=== PATIENT | male | born 1960 | race Caucasian/White ===

== ENCOUNTER → 2024-05-03 | Outpatient (CLI) | payer MEDICARE, MEDICAID, SELFPAY ==
--- NOTE | 2024-05-03 08:54 | XR_ITS ---
EXAMINATION: Cervical spine, 5 views Technique: Cervical spine AP, AP odontoid, lateral, bilateral obliques, 5 views Exam date and time: May 03, 2024 0904 hours INDICATIONS: Neck pain radiating to the right arm, numbness in the right hand 2 months FINDINGS: Adequate alignment cervical vertebral bodies No cervical fracture Advanced degenerative disc disease C3-C4 Mild to moderate bilateral neural foraminal stenosis most prominent C5-C6 Intact odontoid IMPRESSION: Advanced degenerative disc disease C3-C4 Mild to moderate bilateral neural foraminal stenosis, most prominent C5-C6
--- NOTE | 2024-05-03 08:54 | XR_ITS ---
Examination: PA lateral chest 2 views TECHNIQUE: Upright PA lateral chest 2 views Exam date and time: May 03, 2024 0907 hours INDICATIONS: Chronic hypertension, months FINDINGS: Normal heart size Left anterior descending coronary artery calcification No pneumonia or pulmonary edema Moderate osteopenia IMPRESSION: No active disease
== END | disposition home or self-care (01) ==
LOC: CDIM 08:37
PROVIDERS: PCP Family Medicine; Referring Provider Family Medicine; Visit Provider Family Medicine
DX: M50.31 Other cervical disc degeneration, high cervical region (principal); M48.02 Spinal stenosis, cervical region
CPT/HCPCS: 71046; 72050

== ENCOUNTER → 2024-06-08 | Outpatient (CLI) | payer MEDICARE, MEDICAID, SELFPAY ==
[2024-06-08 15:50] LABS: Amphetamine/Methamp Scrn,U Negative (Negative); Barbiturate Screen,Urine Negative (Negative); Benzodiazepines Screen,Urine Negative (Negative); Benzoylecgonine Screen, Ur Negative (Negative); Fentanyl Screen,Urine Negative (Negative); Opiate Screen,Urine Positive (Negative); THC Screen,Urine Positive (Negative)
== END | disposition home or self-care (01) ==
LOC: SLDO 14:08
PROVIDERS: PCP Family Medicine; Referring Provider Family Medicine; Visit Provider Family Medicine
DX: M54.2 Cervicalgia (principal); Z71.51 Drug abuse counseling and surveillance of drug abuser
CPT/HCPCS: 80307

== ENCOUNTER 2024-08-23 10:46 | Emergency (ER) | payer OTHER, SELFPAY ==
[2024-08-23] VITALS (8 sets, daily range): BP systolic 151–171; BP diastolic 94–106; PULSE 76–86; RESP 17–24; TEMP 36.6–36.8; O2SAT 95–98; BMI 36.6
--- NOTE | 2024-08-23 10:46 | EKG_ITS ---
[facility] Test Date: 2024-08-23 Pat Name: ANDREA MONTERO Department: Room: - Gender: Male Injection Molding Technician: : 1960 Requested By: Neda Hendrickson Order Number: [id number] Reading MD: Neda Hendrickson Measurements Intervals [place] Rate: 80 P: 37 [place]: 182 QRS: -80 QRSD: 180 T: 27 QT: 407 QTc: 470 Interpretive Statements SINUS RHYTHM RIGHT BUNDLE BRANCH BLOCK [120+ ms QRS DURATION, UPRIGHT V1, 40+ ms S IN I/aVL/V4/V5/V6] LEFT ANTERIOR FASCICULAR BLOCK [QRS AXIS <= -45, QR IN I, RS IN II] ANTEROSEPTAL MYOCARDIAL INFARCTION , PROBABLY RECENT [40+ ms Q WAVE IN V1-V4] ACUTE [place] Compared to ECG 05/08/2022 08:23:55 Left anterior fascicular block now present Myocardial infarct finding still present /store/S0/[id number]/ecg/[id number].pdf
--- NOTE | 2024-08-23 10:46 | XR_ITS ---
Examination: AP chest single view Technique one AP portable semiupright chest single view Exam date and time: August 23, 2024 11:41 AM Comparison May 03, 2024 INDICATIONS: Chest pain beginning this morning FINDINGS: Normal heart size Lungs are clear. Moderate osteopenia IMPRESSION: No active disease
--- NOTE | 2024-08-23 10:47 | PD.EDCHEST ---
ED Chest Pain RME/HPI General Chief Complaint: Weakness Stated Complaint: WEAKNESS Time Seen by Provider: 08/23/24 10:46 Arrival date/time: 08/23/24 10:46 Related Data Home Medications ?Medication ?Instructions ?Recorded ?Confirmed amlodipine 5 mg tablet 5 mg PO QDAY 02/22/18 05/08/22 atorvastatin 80 mg tablet 80 mg PO QDAY 02/22/18 05/08/22 baclofen 10 mg tablet 10 mg PO QDAY 02/22/18 05/08/22 omeprazole 20 mg tablet,delayed 20 mg PO QDAY 02/22/18 05/08/22 release aspirin 325 mg tablet 325 mg PO QDAY 10/25/20 05/08/22 carvedilol 25 mg tablet 25 mg PO BID 05/08/22 05/08/22 clopidogrel 75 mg tablet 75 mg PO QDAY 05/08/22 05/08/22 hydrocodone 10 mg-acetaminophen 1 tab PO Q6H PRN Pain 05/08/22 05/08/22 325 mg tablet Allergies Allergy/AdvReac Type Severity Reaction Status Date / Time No Known Allergies Allergy Verified 08/23/24 10:53 Course Orders Category Date Time Status Repairer Art Objects NOW Care 08/23/24 10:46 Active EKG (ED ONLY) *Do not use* NOW Care 08/23/24 10:46 Active EKG (ED Only) Stat Exams 08/23/24 10:46 Ordered XR chest 1V portable Stat Exams 08/23/24 10:46 Ordered B-Type Natriuretic Peptide Stat Lab 08/23/24 10:46 Ordered CBC Stat Lab 08/23/24 10:46 Ordered Comprehensive Metabolic Panel Stat Lab 08/23/24 10:46 Ordered Lipase Stat Lab 08/23/24 10:46 Ordered Magnesium Stat Lab 08/23/24 10:46 Ordered Partial Thromboplastin Time Stat Lab 08/23/24 10:46 Ordered Prothrombin Time with INR Stat Lab 08/23/24 10:46 Ordered Troponin I Stat Lab 08/23/24 10:46 Ordered Chest Pain MDM Narrative MDM Narrative:: Ludivina Omalley am scribing for and in the presence of Dr. Downey. Evaluation data Interpretation Summary: EKG#1: EKG at 1047 hours. Interpreted by me: sinus rhythm, rate xx, Q waves V1-V6 and in leads 2, 3, and AVF, right bundle branch block, mild artifact, unchanged from EKG from 05/14/2022 Discharge Plan Prescriptions/Referrals Prescriptions/Med Rec: No Action atorvastatin 80 mg Tablet 80 mg PO QDAY amlodipine 5 mg Tablet 5 mg PO QDAY baclofen 10 mg Tablet 10 mg PO QDAY omeprazole 20 mg Tablet,Delayed Release (Dr/Ec) 20 mg PO QDAY aspirin 325 mg Tablet 325 mg PO QDAY carvedilol 25 mg tablet 25 mg PO BID clopidogrel 75 mg tablet 75 mg PO QDAY hydrocodone-acetaminophen 10-325 mg tablet 1 tab PO Q6H PRN (Reason: Pain) Patient/Caregiver Discharge Instructions Print Language: Uzbek
[2024-08-23] MEDS: ASPIRIN 81 MG CHEW 162 MG PO (10:53)
--- NOTE | 2024-08-23 11:07 | PC.NURSE ---
PT SENT TO ER FROM MD OFFICE W/ POSSIBLE NH. PT DENIES ANY CHEST PAIN/PRESSURE OR FEELING BAD . YESTERDAY PT SAID HE HAD SOME NAUSEA AND VOMITING AT HOME BUT FEELS FINE TODAY. VS STABLE. WILL CONTINUE TO MONITOR.
--- NOTE | 2024-08-23 11:09 | PD.EDRECHK ---
ED Recheck Abnl Lab Rx-RME/HPI General Chief Complaint: Weakness Stated Complaint: WEAKNESS Time Seen by Provider: 08/23/24 10:46 Arrival date/time: 08/23/24 10:46 RME / HPI RME / HPI narrative: DR. DOWNEY MAIN ED EVALUATION: 63 year old male with past medical history significant for hypertension presents to the Emergency Department sent over by his PCP for an abnormal EKG. Patient states he had high blood pressure at home 155/91 and at his doctor's office it was 180/80 then 139/80 but when they did an EKG it was abnormal so they sent him here for further evaluation. Patient otherwise denies any chest pain or shortness of breath. He does mention he had nausea and vomited x2 earlier but feels better now. Strategic Client Executive: Dr. Foy Related Data Home Medications ?Medication ?Instructions ?Recorded ?Confirmed amlodipine 5 mg tablet 5 mg PO QDAY 02/22/18 05/08/22 atorvastatin 80 mg tablet 80 mg PO QDAY 02/22/18 05/08/22 baclofen 10 mg tablet 10 mg PO QDAY 02/22/18 05/08/22 omeprazole 20 mg tablet,delayed 20 mg PO QDAY 02/22/18 05/08/22 release aspirin 325 mg tablet 325 mg PO QDAY 10/25/20 05/08/22 carvedilol 25 mg tablet 25 mg PO BID 05/08/22 05/08/22 clopidogrel 75 mg tablet 75 mg PO QDAY 05/08/22 05/08/22 hydrocodone 10 mg-acetaminophen 1 tab PO Q6H PRN Pain 05/08/22 05/08/22 325 mg tablet Allergies Allergy/AdvReac Type Severity Reaction Status Date / Time No Known Allergies Allergy Verified 08/23/24 10:53 Review of Systems Review of Systems Systems Reviewed: All systems reviewed, normal except as documented Past Medical History Past Medical History NEUROLOGIC: Positive Migraine CARDIAC: Positive Cardiac Disorders, Myocardial Infarction (2007), Heart Murmur, Coronary Artery Disease, Hypercholesterolemia and Hypertension RESPIRATORY: Positive Sleep Apnea GASTROINTESTINAL: Positive Gastrointestinal Disorders, Gall Bladder Disease and Gastroesophageal Reflux Disease MUSCULOSKELETAL: Positive Musculoskeletal Disorders, Arthritis and Gout PSYCHO/SOCIAL: Positive Depression and Anxiety OTHER HISTORY: Positive Hospitalization and Falls (weak) Family History FAMILY HISTORY: Positive Family Cardiac Disorders Surgical History SURGICAL: Positive Coronary Stent (x2 08/2020), Cardiac Catheterization (2008) and Amputation (left middle finger) Social History SMOKING STATUS: Smoker, status unknown SUBSTANCE USE: former substance user (in the ) ALCOHOL: Never ED Exam Narrative Physical exam: GENERAL APPEARANCE: alert and oriented x 4, well-developed, well-nourished, no acute distress VITALS: All vitals were reviewed and the pulse ox is 95% on room air, which is normal according to my interpretation. HEENT: Normocephalic, atraumatic; pupils equal, round, reactive to light; EOMI; mucous membranes pink, moist; oropharynx clear NECK: Supple LUNGS: CTABL; no wheezes, no rales, no rhonchi HEART: Regular rate, regular rhythm; normal S1, S2; no murmurs ABDOMEN: non distended; normal BS; soft, no tenderness, no guarding, no rebound; no masses, no organomegaly, no hernia BACK: no CVA tenderness EXTREMITIES: atraumatic; no edema NEUROLOGIC: awake; alert and oriented x4; cranial nerves II-XII grossly intact; no focal sensory or motor deficits PSYCHIATRIC: appropriate mood and affect SKIN: warm, dry, normal color; no rashes Course Quality Measures none Orders Category Date Time Status Guitar Repair Technician NOW Care 08/23/24 10:46 Active EKG (ED ONLY) *Do not use* NOW Care 08/23/24 10:46 Completed EKG (ED Only) Stat Exams 08/23/24 10:46 Draft XR chest 1V portable Stat Exams 08/23/24 10:46 Completed B-Type Natriuretic Peptide Stat Lab 08/23/24 10:55 Completed CBC Stat Lab 08/23/24 10:55 Completed Comprehensive Metabolic Panel Stat Lab 08/23/24 10:55 Completed Lipase Stat Lab 08/23/24 10:55 Completed Magnesium Stat Lab 08/23/24 10:55 Completed Partial Thromboplastin Time Stat Lab 08/23/24 10:55 Completed Prothrombin Time with INR Stat Lab 08/23/24 10:55 Completed Troponin I Stat Lab 08/23/24 10:55 Completed Aspirin Chew Med 08/23/24 10:50 Discontinued 162 mg PO X1 ONE Labetalol IV [Trandate IV] Med 08/23/24 12:37 Discontinued 10 mg IVP X1 ONE Vital Signs Vital signs: Vital Signs Pulse Rate 77 08/23/24 10:51 Respiratory Rate 24 H 04/28/25 10:51 Blood Pressure 154/96 H 08/23/24 10:51 Pulse Oximetry (%) 95 08/23/24 10:51 Recheck / Abnormal Lab / Rx MDM Narrative MDM Narrative:: Ludivina Omalley am scribing for and in the presence of Dr. Downey. Patient data External records reviewed:: EMS form Clinical information provided by:: EMS Social determinants that could affect healthcare access:: none Patient has the following chronic illnesses:: Hypertension, migraines, hypercholesterolemia, GERD, arthritis. How is presenting disease/condition affected by chronic disease/condition?: exacerbated by Evaluation data The following diagnostics were reviewed and interpreted by me:: lab results, radiology exam(s) and EKG tracing(s) (EKG#1: EKG at 1047 hours. Interpreted by me: sinus rhythm, rate 79, Q waves V1-V6 and in leads 2, 3, and AVF, right bundle branch block, mild artifact, unchanged from EKG from 05/14/2022) Lab and/or radiology exams considered but not ordered:: none Interpretation Summary: Procedure(s): XR chest 1V portable Accession Number(s): [id number] cc: Alber Mendoza MD; Neda Downey MD~ Examination: AP chest single view Technique one AP portable semiupright chest single view Exam date and time: August 23, 2024 11:41 AM Comparison May 03, 2024 INDICATIONS: Chest pain beginning this morning FINDINGS: Normal heart size Lungs are clear. Moderate osteopenia IMPRESSION: No active disease Dictated By: Alber Mendoza MD Medications / Prescriptions Medications or Prescriptions considered but not ordered:: none Medication administrations:: Medication Administration History Discontinued Medications Aspirin (Aspirin 81 Mg Chew) 162 mg PO X1 ONE Stop: 08/23/24 10:51 Last Admin: 08/23/24 10:53 Dose: 162 mg Documented By: LUPILLO Labetalol HCl (Labetalol Inj 5 Mg/Ml Vial 20 Ml) 10 mg IVP X1 ONE Stop: 08/23/24 12:38 Last Admin: 08/23/24 12:48 Dose: 10 mg Documented By: KDC see above Consultations Consultation(s) initiated? (list below): No Diagnosis Recheck Differential Diagnosis: other (Hypertension, dehydration, electrolyte imbalance) Most likely diagnosis given after review of the tests above:: Hypertension Admission Indicated Admission indicated?: not indicated Admission Request Was there a request for admission?: No Disposition Plan Disposition Plan: Discharge Discharge Attestation Discharge Attestation: The patient and all family members were given an opportunity to ask questions and understood the discharge instructions. Discharge instructions specifically effects, indications for sooner follow up or return to the emergency department, and the expected course of current diagnosis. Patient condition: Stable Discharge Plan Plan Patient Disposition: HOME (Self Care) Prescriptions/Referrals Prescriptions/Med Rec: No Action atorvastatin 80 mg Tablet 80 mg PO QDAY amlodipine 5 mg Tablet 5 mg PO QDAY baclofen 10 mg Tablet 10 mg PO QDAY omeprazole 20 mg Tablet,Delayed Release (Dr/Ec) 20 mg PO QDAY aspirin 325 mg Tablet 325 mg PO QDAY carvedilol 25 mg tablet 25 mg PO BID clopidogrel 75 mg tablet 75 mg PO QDAY hydrocodone-acetaminophen 10-325 mg tablet 1 tab PO Q6H PRN (Reason: Pain) Problem List Clinical Impression: Hypertension Patient/Caregiver Discharge Instructions Education Materials: ED Hypertension, Established Print Language: Turkish Stand Alone Forms: Sarahy Award Info., Patient Portal Info Letter
[2024-08-23 11:22] LABS: Partial Thromboplastin Time 25.6 Seconds (22.0-36.0); Prothrombin Time 11.3 Seconds (9.0-12.2)
[2024-08-23 11:24] LABS: Alanine Aminotransferase 23 U/L (10-49); Albumin, Serum 4.8 gm/dL (3.4-4.8); Albumin/Globulin Ratio 1.5 (1.2-2.2); Alkaline Phosphatase 98 U/L (46-116); Anion Gap 6 (7-16); Aspartate Amino Transferase 28 U/L (0-34); BUN/Creatinine Ratio 13 Ratio (12-20); Blood Urea Nitrogen 13 mg/dL (9-23); Calcium 9.4 mg/dL (8.3-10.6); Calcium (Corrected) 9.4 mg/dL (8.5-10.1); Carbon Dioxide 29.1 mMol/L (20.0-31.0); Chloride 104 mMol/L (98-107); Estimated Creatinine Clearance 98.4 mL/min (>60); Globulin 3.1 gm/dL (2.3-3.5); Glucose 119 mg/dL (74-106); Lipase 30 U/L (12-53); Magnesium 1.9 mg/dL (1.6-2.6); Osmolality,Calculated 278 (275-295); Potassium 4.2 mMol/L (3.4-5.1); Sodium 139 mMol/L (136-145); Total Protein 7.9 gm/dL (5.7-8.2); Troponin I 0.037 ng/mL (0.0-0.045); eGFR > 60 See Note
[2024-08-23 11:35] LABS: Basophils % (Auto) 1 % (0-2.5); Eosinophils % (Auto) 1 % (0-10); Hematocrit 44.8 % (41.0-53.0); Immature Granulocytes % (Auto) 1 % (0-0); Immature Granulocytes Auto 0.04 Thou/mm3 (0.00-0.00); Lymphocytes # (Auto) 1.2 Thou/mm3 (1.0-4.8); Lymphocytes % (Auto) 13 % (10-50); Mean Corpuscular HGB Conc 35.7 g/dl (31.0-37.0); Mean Corpuscular Hemoglobin 32.9 pg (25.0-35.0); Mean Corpuscular Volume 92 fL (80-100); Monocytes # (Auto) 0.6 Thou/mm3 (0.0-0.8); Monocytes % (Auto) 6 % (0-12); Neutrophils % (Auto) 79 % (37-80); Nucleated Red Blood Cell % 0 /100 WBC (0); Platelet Count 150 Thou/mm3 (140-440); RDW Standard Deviation 42.2 fL (35.1-43.9); Red Blood Count 4.87 Miln/mm3 (4.50-5.90); White Blood Count 8.8 Thou/mm3 (3.8-10.6)
[2024-08-23 12:00] LABS: B-Type Natriuretic Peptide 100 pg/mL (0-100)
[2024-08-23] MEDS: LABETALOL INJ 5 MG/ML VIAL 20 ML 10 MG IVP (12:48)
--- NOTE | 2024-08-23 13:06 | PC.NURSE ---
BP WAS ELEVATED BEFORE DISCHARGED. PROVIDER NOTIFIED, ASKED TO WAIT ANOTHER 20MIN AND RECHECK BP.
== END 2024-08-23 14:00 | disposition home or self-care (01) ==
PROVIDERS: Emergency Provider Emergency Medicine; PCP Internal Medicine
DX: I10 Essential (primary) hypertension (principal); I45.10 Unspecified right bundle-branch block; I44.4 Left anterior fascicular block; E78.00 Pure hypercholesterolemia, unspecified; I25.10 Atherosclerotic heart disease of native coronary artery without angina pectoris; I25.2 Old myocardial infarction
CPT/HCPCS: 36415; 71045; 80053; 83690; 83735; 83880; 84484; 85025; 85610; 85730; 93005; 96374; 99283; J3490; A9270; J1920

== ENCOUNTER → 2024-08-26 | Outpatient (CLI) | payer MEDICARE, SELFPAY ==
[2024-08-26 09:57] LABS: Basophils # (Auto) 0.1 Thou/mm3 (0.0-0.2); Basophils % (Auto) 1 % (0-2.5); Eosinophils # (Auto) 0.2 Thou/mm3 (0.0-0.5); Eosinophils % (Auto) 2 % (0-10); Glucose Estimated Average 108 mg/dL (80-131); Hematocrit 40.7 % (41.0-53.0); Hemoglobin 14.6 g/dL (13.5-16.0); Hemoglobin A1C 5.4 % Hgb (4.8-6.0); Immature Granulocytes % (Auto) 0 % (0-0); Immature Granulocytes Auto 0.02 Thou/mm3 (0.00-0.00); Lymphocytes # (Auto) 1.4 Thou/mm3 (1.0-4.8); Lymphocytes % (Auto) 21 % (10-50); Mean Corpuscular HGB Conc 35.9 g/dl (31.0-37.0); Mean Corpuscular Volume 92 fL (80-100); Monocytes # (Auto) 0.6 Thou/mm3 (0.0-0.8); Monocytes % (Auto) 10 % (0-12); Neutrophils # (Auto) 4.4 Thou/mm3 (1.8-7.7); Neutrophils % (Auto) 66 % (37-80); Nucleated Red Blood Cell % 0 /100 WBC (0); Platelet Count 151 Thou/mm3 (140-440); RDW Standard Deviation 42.9 fL (35.1-43.9); Red Blood Count 4.42 Miln/mm3 (4.50-5.90); White Blood Count 6.7 Thou/mm3 (3.8-10.6)
[2024-08-26 10:04] LABS: Alanine Aminotransferase 24 U/L (10-49); Albumin, Serum 4.5 gm/dL (3.4-4.8); Albumin/Globulin Ratio 1.7 (1.2-2.2); Alkaline Phosphatase 90 U/L (46-116); Anion Gap 9 (7-16); Aspartate Amino Transferase 36 U/L (0-34); BUN/Creatinine Ratio 18 Ratio (12-20); Bilirubin,Total 0.8 mg/dL (0.3-1.2); Blood Urea Nitrogen 20 mg/dL (9-23); Calcium 9.1 mg/dL (8.3-10.6); Calcium (Corrected) 9.1 mg/dL (8.5-10.1); Carbon Dioxide 30.2 mMol/L (20.0-31.0); Chloride 106 mMol/L (98-107); Cholesterol 131 mg/dL (132-200); Creatinine (Component) 1.1 mg/dL (0.6-1.3); Globulin 2.6 gm/dL (2.3-3.5); Glucose 118 mg/dL (74-106); HDL Cholesterol 33 mg/dL (40-60); LDL Cholesterol,Calculated 81 mg/dL (0-130); Osmolality,Calculated 292 (275-295); Potassium 4.8 mMol/L (3.4-5.1); Sodium 145 mMol/L (136-145); Thyroid Stimulating Hormone 1.33 uIU/mL (0.55-4.78); Total Protein 7.1 gm/dL (5.7-8.2); Triglycerides 86 mg/dL (30-150); eGFR > 60 See Note
== END | disposition home or self-care (01) ==
LOC: COPL 08:19
PROVIDERS: PCP Family Medicine; Referring Provider Internal Medicine; Visit Provider Internal Medicine
DX: I10 Essential (primary) hypertension (principal); E78.00 Pure hypercholesterolemia, unspecified; I25.10 Atherosclerotic heart disease of native coronary artery without angina pectoris; M25.512 Pain in left shoulder; M15.0 Primary generalized (osteo)arthritis
CPT/HCPCS: 36415; 80053; 80061; 83036; 84443; 85025

== ENCOUNTER → 2024-10-04 | Outpatient (CLI) | payer MEDICARE, MEDICAID, SELFPAY ==
[2024-10-04 09:35] LABS: PSA Medicare Annual Scrn 1.97 ng/mL (0-4.00)
== END | disposition home or self-care (01) ==
LOC: COPL 08:23
PROVIDERS: PCP Family Medicine; Referring Provider Internal Medicine; Visit Provider Internal Medicine
DX: R33.9 Retention of urine, unspecified (principal)
CPT/HCPCS: 36415; 84153; G0103

== ENCOUNTER → 2025-04-01 | Outpatient (CLI) | payer MEDICARE, MEDICAID, SELFPAY ==
--- NOTE | 2025-04-01 09:13 | XR_ITS ---
Examination: Bilateral hips, AP pelvis, 5 views Technique: AP, lateral views both hips, AP pelvis, 5 views Exam date and time: April 01, 2025, 0916 hours INDICATIONS: Bilateral hip pain 2 months FINDINGS: Moderate osteopenia Moderate bilateral hip osteoarthritis No right or left hip fracture or dislocation No avascular necrosis Bones of the pelvis intact IMPRESSION: Moderate bilateral hip osteoarthritis
--- NOTE | 2025-04-01 09:13 | XR_ITS ---
Examination: Lumbar spine, 5 views Technique: Lumbar spine AP, lateral, coned lateral lower lumbar spine, bilateral obliques 5 views Exam date and time: April 01, 2025, 0916 hours INDICATION: Lower back pain radiating to both legs beginning 2 months ago. FINDINGS: Advanced diffuse facet arthropathy No lumbar fracture Advanced disc narrowing L2-L3, L4-L5 No spondylolisthesis IMPRESSION: Diffuse lumbar degenerative disc disease, advanced L2-L3, L4-L5 with spinal stenosis
== END | disposition home or self-care (01) ==
LOC: CDIM 09:01
PROVIDERS: PCP Internal Medicine; Referring Provider Internal Medicine; Visit Provider Internal Medicine
DX: M51.360 Other intervertebral disc degeneration, lumbar region with discogenic back pain only (principal); M48.061 Spinal stenosis, lumbar region without neurogenic claudication; M16.0 Bilateral primary osteoarthritis of hip
CPT/HCPCS: 72110; 73523